=== PATIENT | female | born 1965 | race African-American/Black ===

== ENCOUNTER 2017-01-25 18:54 | Emergency (ER) | payer OTHER ==
[~2017-01-25] VITALS: Ht 160 cm; Wt 88.0 kg
[2017-01-25 18:57] VITALS: BP 151/85
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
[2017-01-25] MEDS ORDERED: METH-37 PO (21:57)
[2017-01-25] MEDS ORDERED: TRAM-29 PO (21:57)
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
== END 2017-01-25 22:03 | disposition home or self-care (01) ==
LOC: ER 18:54
DX: M25.512 Pain in left shoulder (principal); M54.5 Low back pain; M25.562 Pain in left knee; M54.2 Cervicalgia; R51 Headache; R11.2 Nausea with vomiting, unspecified; R42 Dizziness and giddiness; Z90.49 Acquired absence of other specified parts of digestive tract; V49.9XXA Car occupant (driver) (passenger) injured in unspecified traffic accident, initial encounter; Y93.89 Activity, other specified; Y99.8 Other external cause status; Y92.488 Other paved roadways as the place of occurrence of the external cause
CPT/HCPCS: 70450; 72100; 72125; 73030; 73562; 99284-25

== ENCOUNTER → 2017-07-20 | Outpatient (CLI) | payer OTHER ==
[~2017-07-20] MED LIST: METH-37 PO; TRAM-48 PO
--- NOTE | 2017-07-20 09:51 | KCIC ---
PELVIS W/TV History: Menorrhagia Comparison: None. Findings: Multiple transabdominal sonographic images of the pelvis are submitted. Uterus measured 13.7 x 7 x 9.3 cm. There is heterogeneity of the uterine parenchyma. There is a heterogeneous more defined hypoechoic mass anteriorly of the uterus up to 3.7 x 3.4 x 4.4 cm, extent near the endometrium. There are other smaller masses present. Neither ovary is demonstrated. Endometrium measures 0.4 cm. Transvaginal ultrasound: Multiple transvaginal sonographic images of the pelvis are submitted. There is heterogeneity of the uterine parenchyma. There are several uterine masses. There are nabothian cysts. Right ovary measured 2 x 1.8 x 2.1 cm with normal low resistance vascularity. Left ovary could not be visualized. No free fluid is demonstrated. Impression: 1. Uterus is enlarged, several uterine masses most likely due to fibroids with the largest anteriorly up to 4.4 cm extending near the endometrial complex. 2. Left ovary could not be visualized. Electronically signed by: David Bartholomew MD (07/20/2017 9:48 AM) [id number]
== END | disposition home or self-care (01) ==
LOC: KCIC US 08:44
PROVIDERS: ATTEND Obstetrics & Gynecology
DX: N92.0 Excessive and frequent menstruation with regular cycle (principal)
CPT/HCPCS: 76830; 76856